=== PATIENT | female | born 1980 | race Caucasian/White ===

== ENCOUNTER 2023-07-03 15:42 | Outpatient (CLI) | payer OTHER ==
[2023-07-03 16:19] LABS: Hemoglobin 13.8 g/dL (12.0-15.5); Mean Corpuscular HGB CONC 33.7 g/dL (32.0-36.0); Mean Corpuscular Hemoglobin 30.7 pg (27.0-33.0); Mean Corpuscular Volume 91.3 fl (81.6-98.3); Mean Platelet Volume 10.1 fl (7.4-10.4); Platelet Count 276 10x3/uL (150-450); RBC Distribution Width 12.4 % (11.5-14.5); Red Blood Cell (RBC) Count 4.49 10x6/uL (3.90-5.03); White Blood Cell (WBC) Count 5.6 10x3/uL (3.5-10.5)
[2023-07-03 16:30] LABS: BHCG - Serum Negative (NEGATIVE); Pregs Control Background? CLEAR/WHITE (CLR/WHITE); Pregs Control Bar Appear? YES (CONTROL BAR)
== END 2023-07-03 15:43 | disposition home or self-care (01) ==
LOC: CSHLAB 15:42
PROVIDERS: ATTEND Obstetrics & Gynecology
DX: Z01.812 Encounter for preprocedural laboratory examination (principal); N80.30 Endometriosis of pelvic peritoneum, unspecified
CPT/HCPCS: 84703; 85027; 86850; 86900; 86901

== ENCOUNTER 2023-07-05 05:44 | Day surgery (SDC) | payer OTHER ==
[2023-07-03 16:03] VITALS: BMI 32.4
[2023-07-05] MEDS ORDERED: Famotidine/PF 20 mg/2ml Vial ONE (06:22)
[2023-07-05] MEDS ORDERED: Gabapentin 300 MG CAP ONE (06:22)
[2023-07-05] MEDS ORDERED: CeleCOXIB 100 MG CAP ONE (06:23)
[2023-07-05] MEDS ORDERED: EPINEPHrine 1 MG/ML VIAL ONE (06:29)
[2023-07-05] MEDS ORDERED: Bupivacaine PF 0.5% 30 ML VIAL ONE (06:30)
[2023-07-05] MEDS ORDERED: Ondansetron PF 4 MG/2 ML Vial ONE (06:39)
[2023-07-05] MEDS ORDERED: Rocuronium Bromide 10 MG/ML (10ML VIAL) ONE (06:39)
[2023-07-05] MEDS ORDERED: Fentanyl 250 MCG/5 ML VIAL ONE (06:39)
[2023-07-05] MEDS ORDERED: Midazolam HCl 2 mg/2 ml Vial ONE (06:39)
[2023-07-05] MEDS ORDERED: Lidocaine 1% PF 5 ML VIAL ONE (06:39)
[2023-07-05] MEDS ORDERED: Dexamethasone 20 MG/5 ML VIAL ONE (06:39)
[2023-07-05] MEDS ORDERED: PROPOFOL 20 ML ONE (06:39)
[2023-07-05] MEDS ORDERED: Dexmedetomidine 200 MCG/2 ML VIAL ONE (06:43)
[2023-07-05] MEDS ORDERED: CEFAZOLIN 2 GM VIAL ONE (07:13)
[2023-07-05] MEDS ORDERED: HYDROcodone/Acetaminophen 5/325 mg Tablet ONE (09:57)
[2023-07-05] MEDS ORDERED: Meperidine HCl/PF 25 MG/ML VIAL ONE (10:50)
== END 2023-07-05 12:10 | disposition home or self-care (01) ==
LOC: CSHSDC 05:44
PROVIDERS: ATTEND Obstetrics & Gynecology
PROC: 0UT24ZZ Resection of Bilateral Ovaries, Percutaneous Endoscopic Approach (ICD-10-PCS; principal; 2023-07-05)
PROC: 0UT74ZZ Resection of Bilateral Fallopian Tubes, Percutaneous Endoscopic Approach (ICD-10-PCS; principal; 2023-07-05)
PROC: 0UT94ZL Resection of Uterus, Supracervical, Percutaneous Endoscopic Approach (ICD-10-PCS; principal; 2023-07-05)
DX: N80.03 Adenomyosis of the uterus (principal); D25.9 Leiomyoma of uterus, unspecified; N80.9 Endometriosis, unspecified; N94.6 Dysmenorrhea, unspecified; N94.89 Other specified conditions associated with female genital organs and menstrual cycle; N83.8 Other noninflammatory disorders of ovary, fallopian tube and broad ligament; N73.6 Female pelvic peritoneal adhesions (postinfective); F17.210 Nicotine dependence, cigarettes, uncomplicated; K58.9 Irritable bowel syndrome, unspecified; Z79.899 Other long term (current) drug therapy
CPT/HCPCS: 88307; J0171; J1100; J2175; J2250; J2405; J2704; J3010; S0020; S0028